=== PATIENT | male | born 1955 | race Caucasian/White ===

== ENCOUNTER 2023-01-09 18:13 | Emergency (ER) | payer OTHER ==
[~2023-01-09] VITALS: Ht 180.3 cm; Wt 100.0 kg
[2023-01-09 18:45] VITALS: TEMP 98.7
[2023-01-09 19:08] LABS: BASO # 0.1 K/mm3 (0.0-0.2); BASO % 0.9 % (0.0-2.0); EOS # 0.3 K/mm3 (0.0-0.7); EOS % 3.5 % (0.0-4.0); GRAN # 5.7 K/mm3 (1.4-6.5); GRAN % 60.7 % (42.2-75.2); HEMATOCRIT 49.3 % (42.0-52.0); HEMOGLOBIN 17.6 g/dl (13.5-18.0); LYMPH # 2.3 K/mm3 (1.2-3.4); LYMPH % 24.3 % (20.0-51.0); MEAN CELL VOLUME 85 fl (80.0-100.0); MEAN CORPUSCULAR HEMOGLOBIN 30 pg (27-31); MEAN CORPUSCULAR HGB CONC 36 g/dl (33.0-37.0); MONO % 10.4 % (1.7-9.3); PLATELET COUNT 240 K/mm3 (130-400); REDCELL DISTRIBUTION WIDTH-CV 12.3 % (11.5-14.5)
[2023-01-09 19:28] LABS: ALBUMIN 4.5 gm/dL (3.4-4.8); C-REACTIVE PROTEIN 1.22 mg/dL (0.00-0.50); CALCIUM 9.5 mg/dL (8.4-10.2); CREATININE, serum 0.8 mg/dL (0.72-1.25); TOTAL PROTEIN 7.8 gm/dL (6.2-8.1)
[2023-01-09 19:34] LABS: TROPONIN-I 0.012 ng/mL (0.00-0.033)
[2023-01-09 19:47] LABS: BILIRUBIN,TOTAL 0.9 mg/dL (0.2-1.2)
[2023-01-09 20:32] VITALS: BP 178/117; PULSE 82
[2023-01-09] MEDS ORDERED: ZITHROMAX 250M250 MG PO (20:35)
[2023-01-09] MEDS ORDERED: PREDNISONE50 MG PO (20:35)
== END 2023-01-09 20:35 | disposition home or self-care (01) ==
LOC: COL.ER 18:13
PROVIDERS: Emergency Medicine
DX: J40 Bronchitis, not specified as acute or chronic (principal); Z87.891 Personal history of nicotine dependence; Z28.310 Unvaccinated for COVID-19
CPT/HCPCS: J7512